=== PATIENT | male | born 1945 | race Caucasian/White ===

== ENCOUNTER → 2018-06-26 | Day surgery (SDC) | payer OTHER ==
[~2018-06-26] MED LIST: AMARYL PO; AMLODIPINE BESYL5 MG PO; CIPRO500 MG PO; COZAAR50 MG PO; GLIMEPIRIDE4 MG PO; IMODIUM A-D2 M2 PO; INTESTINEX1 CA1 PO; INTESTINEX680 MG PO; JANUMET 50-1,1 UDTAB PO; JANUVIA100 MG PO; JANUVIA50 MG PO; LOMOTIL PO; OXYC1TAB9 PO; RECTICARE30 GM TP; SIMVASTATIN10 MG PO; TRAM1TAB98 PO
== END | disposition home or self-care (01) ==
LOC: ADM 06-15 11:00 → AMB-ENDOS 09:01
DX: K63.5 Polyp of colon (principal)